=== PATIENT | female | born 1945 | race African-American/Black ===

== ENCOUNTER 2024-02-13 19:08 | Inpatient (IN) | payer MEDICARE, MEDICAID ==
[~2024-02-13] VITALS: Ht 172.7 cm; Wt 95.7 kg
[~2024-02-13 19:08] MED LIST: AMLODIPINE PO; GABA-529 PO; METF-873 MT
[2024-02-13 22:49] LABS: BASOPHILS % 0.2 % (0.0-2.0); EOSINOPHILS % 1.3 % (0.0-5.0); HEMATOCRIT. 36.6 % (36.0-48.0); HEMOGLOBIN. 11.8 g/dL (12.0-16.0); LYMPHOCYTES % 30.1 % (20.0-50.0); MEAN CORPUSCULAR HEMOGLOBIN 26.1 pg (28.0-32.0); MEAN CORPUSCULAR HGB CONC 32.3 g/dL (31.0-37.0); MEAN CORPUSCULAR VOLUME 80.6 fL (81.0-99.0); MEAN PLATELET VOLUME 8.6 fl (7.4-10.4); MONOCYTES % 9.2 % (2.0-8.0); NEUTROPHILS % 59.2 % (40.0-76.0); PLATELET 286 x1000/uL (130-400); RED BLOOD CELL COUNT 4.55 mill/uL (4.2-5.4); RED CELL DISTRIBUTION WIDTH 17.7 % (11.6-14.6); WHITE BLOOD COUNT 9.3 x1000/uL (4.5-11.0)
[2024-02-13 23:07] LABS: CHLORIDE 107 mEq/L (98-107); POTASSIUM 3.3 mEq/L (3.5-5.1); SODIUM 143 mEq/L (136-145)
[2024-02-13 23:08] LABS: CARBON DIOXIDE 28 mEq/L (21-32)
[2024-02-13 23:09] LABS: CALCIUM 9.5 mg/dL (8.7-10.4)
[2024-02-13 23:13] LABS: CREATININE 1.1 mg/dL (0.6-1.0); GLUCOSE 163 mg/dL (70-105)
[2024-02-13 23:14] LABS: TROPONIN I HIGH SENSITIVITY 25 ng/L (3.0-34); UREA NITROGEN BLOOD 11 mg/dL (9-23)
[2024-02-14 04:00] VITALS: BP 182/63; PULSE 61; RESP 16; TEMP 36.72516; O2SAT 96
[2024-02-14] MEDS ORDERED: DEXTROSE 50% WATER 50ML SYRINGE IV PRN (06:30)
[2024-02-14] MEDS ORDERED: ONDANSETRON HCL 4MG/2ML INJ IV PRN (06:30)
[2024-02-14] MEDS ORDERED: HYDROCODONE/ACETAMINOPHEN 5/325MG TABLET PO PRN (06:30)
[2024-02-14] MEDS: ENOXAPARIN 40MG/0.4ML SYR SUBCUT SCH (06:45)
[2024-02-14] MEDS: CLONIDINE 0.1MG TABLET PO PRN (06:45)
[2024-02-14] MEDS: BLOOD SUGAR DIAGNOSTIC STRIP TEST SCH (06:52)
[2024-02-14] MEDS ORDERED: NALOXONE HCL 0.4MG/ML VIAL IV PRN (07:15)
[2024-02-14] MEDS: INSULIN LISPRO 100 UNITS/ML SUBCUT SCH (08:16)
[2024-02-14] MEDS: AMLODIPINE 10MG TABLET PO SCH (17:10)
[2024-02-15 07:53] LABS: BASOPHILS % 0.1 % (0.0-2.0); HEMATOCRIT. 38.6 % (36.0-48.0); HEMOGLOBIN. 12.3 g/dL (12.0-16.0); LYMPHOCYTES % 33.6 % (20.0-50.0); MEAN CORPUSCULAR HEMOGLOBIN 25.5 pg (28.0-32.0); MEAN CORPUSCULAR HGB CONC 31.8 g/dL (31.0-37.0); MEAN CORPUSCULAR VOLUME 80.4 fL (81.0-99.0); MEAN PLATELET VOLUME 8.2 fl (7.4-10.4); MONOCYTES % 8.4 % (2.0-8.0); NEUTROPHILS % 56.9 % (40.0-76.0); PLATELET 279 x1000/uL (130-400); RED BLOOD CELL COUNT 4.81 mill/uL (4.2-5.4); RED CELL DISTRIBUTION WIDTH 17.7 % (11.6-14.6); WHITE BLOOD COUNT 8.4 x1000/uL (4.5-11.0)
[2024-02-15 07:59] LABS: CHLORIDE 107 mEq/L (98-107); SODIUM 142 mEq/L (136-145)
[2024-02-15 08:00] LABS: CARBON DIOXIDE 28 mEq/L (21-32)
[2024-02-15 08:05] LABS: GLUCOSE 181 mg/dL (70-105); UREA NITROGEN BLOOD 7 mg/dL (9-23)
[2024-02-15 09:00] VITALS: BP 144/63; PULSE 59; RESP 20; TEMP 36.61404; TEMP 36.6404; O2SAT 98
[2024-02-15 12:29] VITALS: BP 142/62; PULSE 76; RESP 20; TEMP 35.89176; O2SAT 99
[2024-02-15] MEDS: POTASSIUM CHLORIDE 20MEQ/PACKET PO SCH (15:15)
[2024-02-15] MEDS: ASPIRIN 81MG TABLET PO SCH (15:15)
[2024-02-15] MEDS: FUROSEMIDE 20MG/2ML VIAL IVP SCH (15:15)
[2024-02-15 16:00] VITALS: BP 163/81; PULSE 78; RESP 20; TEMP 37.05852; O2SAT 97
[2024-02-15 20:00] VITALS: BP 124/73; PULSE 70; RESP 18; TEMP 36.78072; O2SAT 97
[2024-02-16] VITALS: BP 156/69; PULSE 72; RESP 17; TEMP 37.00296; O2SAT 96
[2024-02-16 04:00] VITALS: BP 156/75; PULSE 73; RESP 18; TEMP 35.5584; O2SAT 96
[2024-02-16 06:55] LABS: POTASSIUM 3.4 mEq/L (3.5-5.1)
[2024-02-16 06:56] LABS: CALCIUM 10.2 mg/dL (8.7-10.4)
[2024-02-16 07:01] LABS: CREATININE 1.2 mg/dL (0.6-1.0)
[2024-02-16 08:00] VITALS: BP 149/101; PULSE 77; RESP 19; TEMP 36.61404; O2SAT 92
[2024-02-16] MEDS: ACETAMINOPHEN 325MG TABLET PO PRN (09:10)
[2024-02-16 11:41] VITALS: BP 138/68; PULSE 62; RESP 20; TEMP 36.61404; O2SAT 97
[2024-02-16] MEDS: POTASSIUM CHLORIDE 20MEQ/PACKET PO NR (12:18)
[2024-02-16 15:46] VITALS: BP 127/76; PULSE 77; RESP 19; TEMP 36.61404; O2SAT 93
[2024-02-16 20:00] VITALS: BP 138/62; PULSE 78; RESP 20; TEMP 36.114; O2SAT 96
[2024-02-17] VITALS: BP 157/81; PULSE 71; RESP 20; TEMP 36.114; O2SAT 99
[2024-02-17 04:00] VITALS: BP 144/76; PULSE 76; RESP 20; TEMP 36.61404; O2SAT 99
[2024-02-17 07:53] LABS: CALCIUM 9.7 mg/dL (8.7-10.4); POTASSIUM 3.7 mEq/L (3.5-5.1)
[2024-02-17 07:59] LABS: CREATININE 1.2 mg/dL (0.6-1.0)
[2024-02-17 08:00] VITALS: BP 146/71; PULSE 60; RESP 18; TEMP 37.00296; O2SAT 97
[2024-02-17] MEDS: NITROGLYCERIN SPRAY/4.9GM CAN TL ONE (11:30)
[2024-02-17 12:00] VITALS: BP 127/98; PULSE 94; RESP 17; TEMP 37.503; O2SAT 95
[2024-02-17] MEDS: IOHEXOL-350 100 ML BOTTLE ONE (12:32)
[2024-02-17] MEDS ORDERED: ENOXAPARIN 100MG/ML SYR SUBCUT NR (15:45)
[2024-02-17 16:00] VITALS: BP 137/74; PULSE 97; RESP 18; TEMP 37.2252; O2SAT 92
[2024-02-17] MEDS ORDERED: ENOXAPARIN 100MG/ML SYR SUBCUT SCH (18:00)
[2024-02-17] MEDS: ENOXAPARIN 100MG/ML SYR SUBCUT NR (18:37)
[2024-02-17 20:00] VITALS: BP 153/59; PULSE 66; RESP 18; TEMP 36.50292; O2SAT 98
[2024-02-18] VITALS (7 sets, daily range): BP systolic 117–188; BP diastolic 52–88; PULSE 60–71; RESP 18–20; TEMP 35.66952–37.05852; O2SAT 96–100
[2024-02-18] MEDS: ENOXAPARIN 100MG/ML SYR SUBCUT SCH (05:34)
[2024-02-18] MEDS: APIXABAN 5 MG TABLET PO SCH (21:27)
[2024-02-19] VITALS (7 sets, daily range): BP systolic 105–164; BP diastolic 55–87; PULSE 54–84; RESP 18–19; TEMP 35.78064–36.55848; O2SAT 97–100
[2024-02-19 06:14] LABS: CALCIUM 9.5 mg/dL (8.7-10.4); POTASSIUM 3.6 mEq/L (3.5-5.1)
[2024-02-19 06:20] LABS: CREATININE 1.1 mg/dL (0.6-1.0)
[2024-02-19 06:24] LABS: BASOPHILS % 0.5 % (0.0-2.0); DIFFERENTIAL COMMENT 0; EOSINOPHILS % 1.4 % (0.0-5.0); HEMATOCRIT. 39.7 % (36.0-48.0); HEMOGLOBIN. 12.6 g/dL (12.0-16.0); LYMPHOCYTES % 41.3 % (20.0-50.0); MEAN CORPUSCULAR HEMOGLOBIN 25.4 pg (28.0-32.0); MEAN CORPUSCULAR HGB CONC 31.8 g/dL (31.0-37.0); MEAN CORPUSCULAR VOLUME 79.9 fL (81.0-99.0); MEAN PLATELET VOLUME 8.5 fl (7.4-10.4); MONOCYTES % 10.7 % (2.0-8.0); NEUTROPHILS % 46.1 % (40.0-76.0); PLATELET 302 x1000/uL (130-400); RED BLOOD CELL COUNT 4.96 mill/uL (4.2-5.4); RED CELL DISTRIBUTION WIDTH 17.9 % (11.6-14.6); WHITE BLOOD COUNT 7.5 x1000/uL (4.5-11.0)
[2024-02-20] VITALS: BP 149/76; PULSE 68; RESP 18; TEMP 36.22512; O2SAT 98
[2024-02-20 04:00] VITALS: BP 145/73; PULSE 60; RESP 19; TEMP 36.55848; O2SAT 98
[2024-02-20 07:52] VITALS: BP 174/75; PULSE 62; RESP 18; TEMP 36.16956; O2SAT 99
[2024-02-20 11:48] VITALS: BP 161/64; PULSE 62; RESP 18; TEMP 35.8362; O2SAT 98
[2024-02-20 16:13] VITALS: BP 168/70; PULSE 60; RESP 18; TEMP 36.22512; O2SAT 95
[2024-02-20] MEDS: LOSARTAN 50 MG TABLET PO SCH (17:21)
[2024-02-20 20:00] VITALS: BP 120/69; PULSE 73; RESP 18; TEMP 37.28076; O2SAT 98
[2024-02-21] VITALS: BP 137/62; PULSE 65; RESP 18; TEMP 37.2252; O2SAT 98
[2024-02-21 04:00] VITALS: BP 157/75; PULSE 68; RESP 20; TEMP 36.50292; O2SAT 100
[2024-02-21 06:19] LABS: POTASSIUM 3.8 mEq/L (3.5-5.1)
[2024-02-21 06:20] LABS: CALCIUM 10.1 mg/dL (8.7-10.4)
[2024-02-21 06:25] LABS: CREATININE 1.1 mg/dL (0.6-1.0)
[2024-02-21 08:00] VITALS: BP 138/86; PULSE 89; RESP 18; TEMP 36.72516; O2SAT 97
[2024-02-21 08:03] LABS: HEMATOCRIT 39.6 % (36.0-48.0); HEMOGLOBIN 13.1 g/dL (12.0-16.0); MEAN CORPUSCULAR HEMOGLOBIN 26.5 pg (28.0-32.0); MEAN CORPUSCULAR VOLUME 80.3 fL (81.0-99.0); PLATELET 319 x1000/uL (130-400); RED BLOOD CELL COUNT 4.93 mill/uL (4.2-5.4); RED CELL DISTRIBUTION WIDTH 17.6 % (11.6-14.6); WHITE BLOOD COUNT 9.3 x1000/uL (4.5-11.0)
[2024-02-21 12:00] VITALS: BP 172/87; PULSE 66; RESP 18; TEMP 36.61404; O2SAT 97
[2024-02-21 16:00] VITALS: BP 115/73; PULSE 83; RESP 18; TEMP 36.55848; O2SAT 98
[2024-02-21 20:00] VITALS: BP 148/70; PULSE 70; RESP 18; TEMP 36.3918; O2SAT 96
[2024-02-22] VITALS: BP 139/84; PULSE 60; RESP 20; TEMP 36.22512; O2SAT 97
[2024-02-22 04:00] VITALS: BP 157/75; PULSE 59; RESP 18; TEMP 36.72516; O2SAT 98
[2024-02-22 08:00] VITALS: BP 160/81; PULSE 63; RESP 18; TEMP 36.78072; O2SAT 99
[2024-02-22 12:00] VITALS: BP 154/77; PULSE 68; RESP 18; TEMP 36.89184; O2SAT 99
[2024-02-22 14:51] VITALS: BP 154/77; PULSE 68; TEMP 98.4; O2SAT 99
== END 2024-02-22 17:18 | disposition home or self-care (01) | DRG 175 ==
LOC: ER 19:08 → 5WST 02-14 03:16 → 7WST 02-15 08:55
PROVIDERS: ADMIT Internal Medicine Pulmonary Disease; ATTEND Internal Medicine Pulmonary Disease
DX: I26.99 Other pulmonary embolism without acute cor pulmonale (principal); I50.31 Acute diastolic (congestive) heart failure; I11.0 Hypertensive heart disease with heart failure; E11.9 Type 2 diabetes mellitus without complications; E78.00 Pure hypercholesterolemia, unspecified; E66.9 Obesity, unspecified; E87.6 Hypokalemia; Z68.32 Body mass index [BMI] 32.0-32.9, adult
CPT/HCPCS: 36415; 71045; 75571; 80048; 82550; 82553; 82962; 83036; 83880; 84484; 85025; 85027; 93005; 93306; 93970; 97162; 97166; 97535; 99285; J1650; J1815; J1940; Q9967

== ENCOUNTER 2024-03-05 16:28 | Emergency (ER) | payer MEDICARE, MEDICAID ==
[~2024-03-05] VITALS: Ht 165.1 cm; Wt 70.0 kg
[~2024-03-05 16:28] MED LIST changes: +APIX5TAB MT; +METF-1149 MT; -METF-873 MT
[2024-03-05 16:35] VITALS: O2SAT 100
[2024-03-05 17:37] LABS: BASOPHILS % 0.6 % (0.0-2.0); DIFFERENTIAL COMMENT 0; EOSINOPHILS % 0.4 % (0.0-5.0); HEMATOCRIT. 38.4 % (36.0-48.0); HEMOGLOBIN. 12.5 g/dL (12.0-16.0); LYMPHOCYTES % 28.7 % (20.0-50.0); MEAN CORPUSCULAR HGB CONC 32.6 g/dL (31.0-37.0); MEAN CORPUSCULAR VOLUME 79.9 fL (81.0-99.0); MEAN PLATELET VOLUME 8.3 fl (7.4-10.4); MONOCYTES % 9.3 % (2.0-8.0); PLATELET 347 x1000/uL (130-400); WHITE BLOOD COUNT 9.8 x1000/uL (4.5-11.0)
[2024-03-05 17:38] LABS: CHLORIDE 105 mEq/L (98-107); POTASSIUM 3.4 mEq/L (3.5-5.1); SODIUM 138 mEq/L (136-145)
[2024-03-05 17:39] LABS: CALCIUM 9.7 mg/dL (8.7-10.4); CARBON DIOXIDE 25 mEq/L (21-32)
[2024-03-05 17:40] LABS: PARTIAL THROMBOPLASTIN TIME 25.8 sec (23.4-31.0); PROTHROMBIN TIME 11.4 sec (9.6-11.0)
[2024-03-05 17:44] LABS: CREATININE 1.3 mg/dL (0.6-1.0); GLUCOSE 127 mg/dL (70-105); UREA NITROGEN BLOOD 17 mg/dL (9-23)
[2024-03-05 17:46] LABS: TROPONIN I HIGH SENSITIVITY 10 ng/L (3.0-34)
[2024-03-05] MEDS ORDERED: DOCUSATE SODIUM 100MG CAPSULE PO PRN (22:15)
[2024-03-05] MEDS ORDERED: ACETAMINOPHEN 325MG TABLET PO PRN (22:15)
[2024-03-05] MEDS ORDERED: CLONIDINE 0.1MG TABLET PO PRN (22:15)
[2024-03-05] MEDS ORDERED: DEXTROSE 50% WATER 50ML SYRINGE IV PRN (22:15)
[2024-03-05 23:25] VITALS: BP 167/73; PULSE 70; RESP 16; TEMP 37.00296; O2SAT 100
[2024-03-06] MEDS ORDERED: INSULIN LISPRO 100 UNITS/ML SUBCUT SCH (08:20)
[2024-03-06] MEDS ORDERED: BLOOD SUGAR DIAGNOSTIC STRIP TEST SCH (09:00)
== END 2024-03-05 23:50 | disposition short-term general hospital (02) ==
LOC: ER 16:28 → EDBEDREQTM 18:49 → EDBEDREQ 18:49 → ER 23:50
DX: R07.89 Other chest pain (principal); I11.9 Hypertensive heart disease without heart failure; E11.9 Type 2 diabetes mellitus without complications; E78.00 Pure hypercholesterolemia, unspecified; Z79.899 Other long term (current) drug therapy
CPT/HCPCS: 36415; 71045; 80048; 80061; 83036; 83880; 84484; 85025; 93005; 99291

== ENCOUNTER 2025-02-24 10:19 | Emergency (ER) | payer MEDICARE, MEDICAID ==
[~2025-02-24] VITALS: Ht 152.4 cm; Wt 72.0 kg
[2025-02-24 10:21] VITALS: O2SAT 98
[2025-02-24 11:49] LABS: BASOPHILS % 0.2 % (0.0-2.0); EOSINOPHILS % 1.0 % (0.0-5.0); HEMATOCRIT. 42.7 % (36.0-48.0); HEMOGLOBIN. 13.7 g/dL (12.0-16.0); LYMPHOCYTES % 31.3 % (20.0-50.0); MEAN PLATELET VOLUME 8.1 fl (7.4-10.4); MONOCYTES % 6.6 % (2.0-8.0); NEUTROPHILS % 60.9 % (40.0-76.0); PLATELET 271 x1000/uL (130-400); RED BLOOD CELL COUNT 5.57 mill/uL (4.2-5.4); RED CELL DISTRIBUTION WIDTH 17.4 % (11.6-14.6)
[2025-02-24 12:01] LABS: CREATININE 1.0 mg/dL (0.6-1.0); INR 1.0; UREA NITROGEN BLOOD 10 mg/dL (9-23)
[2025-02-24 12:02] LABS: TROPONIN I HIGH SENSITIVITY 5 ng/L (3.0-34)
[2025-02-24] MEDS: MORPHINE SULFATE 2 MG/ML INJ (NOT FOR IM USE) IV ONE (13:31)
[2025-02-24] MEDS: ONDANSETRON HCL 4MG/2ML INJ IV ONE (13:31)
[2025-02-24 18:16] VITALS: BP 169/74; PULSE 68; RESP 19; TEMP 36.8; O2SAT 96
== END 2025-02-24 18:30 | disposition short-term general hospital (02) ==
LOC: ER 10:19 → CMPBEDREQ 02-26 07:54
DX: R07.89 Other chest pain (principal); E11.9 Type 2 diabetes mellitus without complications; E78.00 Pure hypercholesterolemia, unspecified; I10 Essential (primary) hypertension; Z79.01 Long term (current) use of anticoagulants; Z79.84 Long term (current) use of oral hypoglycemic drugs; Z79.899 Other long term (current) drug therapy
CPT/HCPCS: 99285; 96374; 71045; 96375; 80048; 83880; 85025; 85610; 85730; 84484; 36415; 93005; J2405; J2270; A4606